=== PATIENT | male | born 1985 | race Caucasian/White ===

== ENCOUNTER 2020-06-10 16:44 | Emergency (ER) | payer SELFPAY ==
[2020-06-10] MEDS ORDERED: Proparacaine 0.5% Opth 15 ML BOT ONE (17:21)
[2020-06-10] MEDS ORDERED: Fluorescein Opthalmic Strip ONE (17:21)
== END 2020-06-10 17:47 | disposition home or self-care (01) ==
LOC: ERS 16:44
DX: T15.12XA Foreign body in conjunctival sac, left eye, initial encounter (principal); S05.02XA Injury of conjunctiva and corneal abrasion without foreign body, left eye, initial encounter; W22.8XXA Striking against or struck by other objects, initial encounter; Y99.0 Civilian activity done for income or pay; F17.210 Nicotine dependence, cigarettes, uncomplicated
CPT/HCPCS: 99282